=== PATIENT | female | born 1945 | race Caucasian/White ===

== ENCOUNTER 2017-02-28 12:26 | Day surgery (SDC) | payer BC ==
[2017-02-28] MEDS ORDERED: LIDOCAINE 2% MDV (20MG/ML) 20ML VIAL IV ONE (14:00)
[2017-02-28] MEDS ORDERED: PROPOFOL 10 MG/ML VIAL IV ONE (14:00)
--- NOTE | 2017-03-01 17:12 | Operative Note ---
DATE OF SURGERY: 02/28/2017 OPERATION: Screening COLONOSCOPY. PREOPERATIVE DIAGNOSIS: Family history of colon cancer in a first-degree relative. POSTOPERATIVE DIAGNOSIS: [id number] sigmoid diverticulosis. PREPARATION QUALITY: Good. ESTIMATED BLOOD LOSS: None. COMPLICATIONS: None apparent. PROCEDURE: After informed consent was obtained from the patient, the patient was placed in the left lateral decubitus position in the endoscopy suite, sedated and monitored by the department of anesthesia. Digital rectal examination was unremarkable. A well-lubricated [id number] colonoscope was inserted into the rectum and advanced to the cecum. It was somewhat difficult intubating the cecum given the significant diverticular disease and the tortuosity of the sigmoid colon. The sigmoid colon even seemed somewhat narrowed. The cecum, ileocecal valve, appendiceal orifice, ascending colon, transverse colon, descending colon, sigmoid colon, and rectum were free of inflammatory changes, mass lesions, or polyps. The sigmoid colon demonstrated multiple diverticula and a somewhat narrowed lumen presumably related to the diverticular disease. No polyps or lesions were noted. The rectum was unremarkable in forward and in J-turn views. The endoscope was straightened, the rectal ampulla deflated, and the endoscope was removed. RECOMMENDATIONS: I suggest the patient follow a high-fiber diet and use a fiber supplement. I would recommend a repeat exam in 5 years. As always, thank you for allowing me to participate in the healthcare of your patients. CC: Dr. Jatinder VENTURA
== END 2017-02-28 14:42 | disposition home or self-care (01) ==
LOC: HOP 12:26
PROVIDERS: ATTEND Internal Medicine Gastroenterology
DX: Z80.0 Family history of malignant neoplasm of digestive organs (principal); K57.30 Diverticulosis of large intestine without perforation or abscess without bleeding; Z79.82 Long term (current) use of aspirin
CPT/HCPCS: 00810; G0105